=== PATIENT | male | born 1985 | race Caucasian/White ===

== ENCOUNTER 2016-05-02 07:22 | Emergency (ER) | payer SELFPAY ==
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
== END 2016-05-02 08:30 | disposition home or self-care (01) ==
LOC: ER 07:22
DX: S30.0XXA Contusion of lower back and pelvis, initial encounter (principal); V47.5XXA Car driver injured in collision with fixed or stationary object in traffic accident, initial encounter; Y92.413 State road as the place of occurrence of the external cause
CPT/HCPCS: 72100; 99283

== ENCOUNTER 2017-03-08 17:54 | Emergency (ER) | payer MEDICAID ==
--- NOTE | 2017-03-08 18:34 | Emergency Department Record ---
History of Present Illness - General Chief Complaint: Knee injury Stated Complaint: LT KNEE PAIN Time Seen by Provider: 03/08/17 18:31 Source: Patient Mode of Arrival: Ambulatory Limitations: No limitations - History of Present Illness Initial Comments: 31 yo male presents to ED for evaluation of acute on chronic left knee pain. Patient reports a 5-year history of left knee pain symptoms, has undergone radiographs and MRI without definitive cause for his symptoms. Patient reports that his PCP feels that the symptoms are due to arthritis, has been taking Ibuprofen which helps somewhat. Patient denies recent injury, swelling, fevers , redness, or previous surgery to the knee. MD Complaint: Knee injury Onset/Timin -: Year(s) Injury: Knee: Left Type of Injury: Unknown Severity: Moderate Severity scale (1-10): 7 Improves With: NSAID Worsens With: Movement, Weight bearing - Related Data Previous Rx's Medication Instructions Recorded Ibuprofen [Motrin] 800 mg PO Q8H PRN #30 tab 05/02/16 Naproxen [Naprosyn] 500 mg PO Q12H #30 tab 03/08/17 Allergies Allergy/AdvReac Type Severity Reaction Status Date / Time No Known Drug Allergies Allergy Verified 03/08/17 18:12 Travel Screening - Travel/Exposure Within Last 30 Days Have you traveled within the last 30 days?: No Review of Systems Constitutional: Denies: Chills, Fever, Malaise, Night sweats Eyes: Denies: Eye discharge, Eye pain ENT: Denies: Congestion, Ear pain, Epistaxis Respiratory: Denies: Cough, Dyspnea Cardiovascular: Denies: Chest pain, Dyspnea on exertion Endocrine: Denies: Fatigue, Heat or cold intolerance Gastrointestinal: Denies: Abdominal pain, Nausea, Vomiting Genitourinary: Denies: Incontinence, Retention Musculoskeletal: Reports: Arthralgia. Denies: Back pain, Gout, Joint swelling Skin: Denies: Bruising, Change in color Neurological: Denies: Abnormal gait, Confusion, Headache Psychiatric: Denies: Anxiety Hematological/Lymphatic: Denies: Anemia, Blood Clots Past Medical History - SOCIAL HISTORY Smoking Status: Current every day smoker Alcohol Use: None Drug Use: None - RESPIRATORY Hx Respiratory Disorders: Yes Hx Asthma: Yes (childhood) - CARDIOVASCULAR Hx Cardio Disorders: No - NEURO Hx Neuro Disorders: No - GI Hx GI Disorders: No - Hx Genitourinary Disorders: No - ENDOCRINE Hx Endocrine Disorders: No - MUSCULOSKELETAL Hx Musculoskeletal Disorders: No - PSYCH Hx Psych Problems: Yes Hx Anxiety: Yes Hx Depression: Yes - HEMATOLOGY/ONCOLOGY Hx Hematology/Oncology Disorders: No Family Medical History Any Significant Family History?: Yes Hx Cancer: Grandparents Hx Seizures: Grandparents Physical Exam - General General Appearance: Alert, Oriented x3, Cooperative, No acute distress Limitations: No limitations - Head Head exam: Atraumatic, Normocephalic, Normal inspection Head exam detail: negative: Abrasion, Contusion, Ayala's sign, General tenderness, Hematoma, Laceration - Eye Eye exam: Normal appearance. negative: Conjunctival injection, Periorbital swelling, Periorbital tenderness, Scleral icterus - ENT Ear exam: negative: Auricular hematoma, Auricular trauma Nasal Exam: negative: Active bleeding, Discharge, Dried blood, Foreign body Mouth exam: negative: Drooling, Laceration, Muffled voice, Tongue elevation - Neck Neck exam: Normal inspection. negative: Meningismus, Tenderness - Respiratory Respiratory exam: Normal lung sounds bilaterally. negative: Respiratory distress, Rhonchi, Stridor, Wheezes - Cardiovascular Cardiovascular Exam: Regular rate, Normal rhythm, Normal heart sounds - GI/Abdominal GI/Abdominal exam: Soft. negative: Rebound, Rigid, Tenderness - Rectal Rectal exam: Deferred - exam: Deferred - Extremities Extremities exam: Normal inspection. negative: Calf tenderness, Pedal edema, Tenderness - Back Back exam: Reports: Normal inspection. Denies: CVA tenderness (R), CVA tenderness (L) - Neurological Neurological exam: Alert, Oriented X3. negative: Motor sensory deficit - Psychiatric Psychiatric exam: Normal affect, Normal mood - Skin Skin exam: Normal color. negative: Abrasion Type of lesion: negative: abrasion Course Vital Signs 03/08/17 18:09 Temperature 98.7 F Pulse Rate 71 Respiratory 20 Rate Blood Pressure 133/85 Pulse Ox 98 - Reevaluation(s) Reevaluation #1: 03/08/17 18:37 Knee examination is essentially normal. All ligaments are stable on testing, no evidence for effusion or septic joint on examination, and the knee is overall normal in appearance. Given the patient has undergone both negative radiographs and MRI examination with definitive etiology for his symptoms, will refer to Dr. Catalan for further evaluation in the [facility]. Disposition Disposition: Discharge Clinical Impression: Chronic knee pain Qualifiers: Laterality: left Qualified Code(s): M25.562 - Pain in left knee Disposition: Home, Self-Care Condition: (2) Stable Instructions: Knee Pain (ED) Additional Instructions: Return to ED if your symptoms worsen or if you have any concerns. Naprosyn as directed. Follow-up with Dr. Catalan in 5-7 days as directed for further evaluation. Prescriptions: Naproxen [Naprosyn] 500 mg PO Q12H #30 tab.dr Referrals: ANGY ACTALAN [DOCTOR OF OSTEOPATH] - [facility] [Provider Group] Forms: Patient Portal Access Time of Disposition: 18:33 Quality - Quality Measures Quality Measures: N/A - Blood Pressure Screening Does Patient Have Any of the Following: No Blood Pressure Classification: Pre-Hypertensive BP Reading Systolic Measurement: 133 Diastolic Measurement: 85 Screening for High Blood Pressure: < Pre-Hypertensive BP, F/U Documented > [ G8950] Pre-Hypertensive Follow-up Interventions: Referral to alternative/primary care provider.
== END 2017-03-08 19:05 | disposition home or self-care (01) ==
LOC: ER 17:54
DX: G89.29 Other chronic pain (principal); M25.562 Pain in left knee
CPT/HCPCS: 99282

== ENCOUNTER 2017-06-06 22:51 | Emergency (ER) | payer MEDICAID ==
[2017-06-06] MEDS ORDERED: 0.9 % SODIUM CHLORIDE 1,000 ML BAG IV ONE (23:19)
[2017-06-06] MEDS ORDERED: METOCLOPRAMIDE HCL 10 MG/2 ML VIAL IVP ONE (23:21)
[2017-06-06 23:37] LABS: BASO % 0.2 % (0-6); EOS % 4.6 % (0-6); GRAN % 45.3 % (47-80); HEMATOCRIT 43.2 % (42.0-52.0); HEMOGLOBIN 14.8 gm/dl (14.0-18.0); LYMPH % 42.2 % (16-45); MEAN CORPUSCULAR HEMOGLOBIN 28.8 pg (27-33); MEAN CORPUSCULAR HGB CONC 34.3 g/dl (32-36); MEAN PLATELET VOLUME 9.2 fl (7.4-10.4); MONO % 7.7 % (0-9); PLATELET COUNT 289 K/uL (130-400); RED BLOOD COUNT 5.14 M/uL (4.40-5.70); RED CELL DISTRIBUTION WIDTH 13.5 % (11.5-14.5); WHITE BLOOD COUNT W/O DIFF 11.7 K/uL (4.2-12.2)
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
[2017-06-06 23:49] LABS: BLOOD UREA NITROGEN 13 mg/dL (6-20); EST GLOMERULAR FILTRATION RATE > 60 mL/min
[2017-06-06 23:51] LABS: GLUCOSE,RANDOM 88 mg/dL (74-109)
[2017-06-07 00:08] LABS: ERYTHROCYTE SEDIMENTATION RATE 1 mm/hr (0-15)
[2017-06-07] MEDS ORDERED: KETOROLAC 30 MG/ML VIAL IVP ONE (00:25)
--- NOTE | 2017-06-08 06:25 | CT SCAN REPORT ---
DATE: 06/07/2017 at 0005. EXAM: CT OF THE HEAD WITHOUT CONTRAST. HISTORY: Worsening frequent headaches. TECHNIQUE: Routine noncontrast CT examination of the head is performed. COMPARISON: None. 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 There is prominence of the occipital and temporal horns of the lateral ventricles. The subarachnoid spaces are normal in size. No suspicious area of abnormally increased or decreased attenuation is noted throughout the brain substance. No abnormal extra-axial fluid collection is seen. Chronic-appearing inflammatory changes are scattered throughout the majority of the paranasal sinuses. The mastoid air cells are clear. The orbits as visualized are unremarkable. There is right-cooper deviation of the nasal septum. IMPRESSION: 1. 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 NO CT EVIDENCE OF ACUTE INTRACRANIAL ABNORMALITY NOR MASS. 2. CHRONIC INFLAMMATORY CHANGES SCATTERED THROUGHOUT THE MAJORITY OF THE PARANASAL SINUSES. JOB NUMBER: [id number] MTDD
== END 2017-06-07 01:03 | disposition home or self-care (01) ==
LOC: ER 22:51
DX: G43.809 Other migraine, not intractable, without status migrainosus (principal); H53.149 Visual discomfort, unspecified; F17.210 Nicotine dependence, cigarettes, uncomplicated
CPT/HCPCS: 99284 ×2; 96374; 96375; 85025; 85651; 80048; 70450; J1885; J2765; J7030

== ENCOUNTER 2017-09-07 23:42 | Emergency (ER) | payer MEDICAID ==
[2017-09-07] MEDS ORDERED: LORAZEPAM 2 MG/ML VIAL IV ONE (23:44)
--- NOTE | 2017-09-07 23:47 | Emergency Department Record ---
History of Present Illness - General Chief Complaint: Altered Mental Status Stated Complaint: UNRESPONSIVE Time Seen by Provider: 09/07/17 23:43 Source: Family Mode of Arrival: Wheelchair Limitations: Altered mental status - History of Present Illness Initial Comments: 32 yo male presents to ED for evaluation of unresponsiveness for the past 20-30 minutes. Per patient's SO, patient was under emotional stress following a disagreement with a friend at the bedside when he became unresponsive. SO reports a similar episode several years ago, was initially thought to be the result of a seizure, bit was later determined to be an anxiety reaction. SO denies health problems at his baseline. MD Complaint: Altered mental status Onset/Timin -: Minutes(s) Severity: Moderate Consistency: Constant Associated Symptoms: Denies other symptoms - Related Data Home Medications Medication Instructions Recorded Confirmed Last Taken Amitriptyline HCl [Elavil] 25 mg PO DAILY 09/07/17 09/07/17 Unknown Allergies Allergy/AdvReac Type Severity Reaction Status Date / Time No Known Drug Allergies Allergy Verified 03/08/17 18:12 Review of Systems ROS unobtainable: Due to mental status Past Medical History - SOCIAL HISTORY Smoking Status: Current every day smoker - RESPIRATORY Hx Respiratory Disorders: Yes Hx Asthma: Yes (childhood) - CARDIOVASCULAR Hx Cardio Disorders: No - NEURO Hx Neuro Disorders: No Comment:: VERTIGO, hydrocephally, trouble with comprehension. - GI Hx GI Disorders: No - Hx Genitourinary Disorders: No - ENDOCRINE Hx Endocrine Disorders: No - MUSCULOSKELETAL Hx Musculoskeletal Disorders: No - PSYCH Hx Psych Problems: Yes Hx Anxiety: Yes Hx Depression: Yes - HEMATOLOGY/ONCOLOGY Hx Hematology/Oncology Disorders: No Comment:: BORN WITH HYDROCEPHALUS Family Medical History Hx Cancer: Grandparents Hx Seizures: Grandparents Physical Exam - General General Appearance: Other (Patient unresponsive to voice, flaccid paralysis of all limbs, no rigidity noted. Pupils PERRL.) Limitations: Altered mental status - Head Head exam: Atraumatic, Normocephalic, Normal inspection Head exam detail: Other (Diaphoretic). negative: Abrasion, Contusion, Ayala's sign, General tenderness, Hematoma, Laceration - Eye Eye exam: Normal appearance, PERRL. negative: Conjunctival injection, Periorbital swelling, Periorbital tenderness, Scleral icterus - ENT Ear exam: negative: Auricular hematoma, Auricular trauma Nasal Exam: negative: Active bleeding, Discharge, Dried blood, Foreign body Mouth exam: negative: Drooling, Laceration, Muffled voice, Tongue elevation - Neck Neck exam: Normal inspection. negative: Meningismus, Tenderness - Respiratory Respiratory exam: Normal lung sounds bilaterally. negative: Rales, Respiratory distress, Rhonchi, Stridor - Cardiovascular Cardiovascular Exam: Regular rate, Normal rhythm, Normal heart sounds - GI/Abdominal GI/Abdominal exam: Soft. negative: Rebound, Rigid, Tenderness - Rectal Rectal exam: Deferred - exam: Deferred - Extremities Extremities exam: Normal inspection. negative: Pedal edema, Tenderness - Neurological Neurological exam: Other (Cannot assess due to mental status) - Psychiatric Psychiatric exam: Other (Cannot assess due to mental status.) - Skin Skin exam: Diaphoretic. negative: Abrasion Type of lesion: negative: abrasion Course - Reevaluation(s) Reevaluation #1: 09/08/17 00:00 IV was placed, patient is now awake, alert, and answering questions appropriately. Will observe closely pending laboratory studies. Reevaluation #2: 09/08/17 00:27 EKG: NSR 80 Normal axis, normal intervals No acute ST-T wave changes Laboratory studies were reviewed: WBC 13.8 LA 1.5 CPK 73 Labs are otherwise grossly unremarkable for an acute process. Patient's labs, history, and clinical examination (flaccid vs. rigidity) do not suggest seizure, more consistent with emotional stress response. Patient is now sitting up, alert, oriented, and drinking fluids. Patient reports that he is feeling much better and appears stable for discharge at this time. Medical Decision Making - Lab Data Result diagrams: 09/07/17 23:50 09/07/17 23:50 Disposition Disposition: Discharge Clinical Impression: Stress response Disposition: Home, Self-Care Condition: (2) Stable Instructions: Stress (ED) Additional Instructions: Return to ED if your symptoms worsen or if you have any concerns. Follow-up with your family doctor in 3-5 days as directed. Forms: Patient Portal Access Time of Disposition: 00:30 Quality - Quality Measures Quality Measures: N/A - Blood Pressure Screening Does Patient Have Any of the Following: No Blood Pressure Classification: Hypertensive Reading Systolic Measurement: 148 Diastolic Measurement: 103 Screening for High Blood Pressure: < First Hypertensive BP, F/U Documented > [ G8950] First Hypertensive Follow-up Interventions: Referral to alternative/primary care provider.
[2017-09-07 23:58] LABS: BASO % 0.2 % (0-6); EOS % 3.6 % (0-6); HEMATOCRIT 45.2 % (42.0-52.0); HEMOGLOBIN 15.5 gm/dl (14.0-18.0); LYMPH % 33.6 % (16-45); MEAN CELL VOLUME 84.6 fl (81-97); MEAN CORPUSCULAR HGB CONC 34.3 g/dl (32-36); MEAN PLATELET VOLUME 9.4 fl (7.4-10.4); MONO % 8.6 % (0-9); PLATELET COUNT 307 K/uL (130-400); RED BLOOD COUNT 5.34 M/uL (4.40-5.70); RED CELL DISTRIBUTION WIDTH 13.3 % (11.5-14.5); WHITE BLOOD COUNT W/O DIFF 13.8 K/uL (4.2-12.2)
[2017-09-08 00:10] LABS: BLOOD UREA NITROGEN 12 mg/dL (6-20); EST GLOMERULAR FILTRATION RATE > 60 mL/min; TOTAL PROTEIN 7.4 g/dL (6.6-8.7)
[2017-09-08 00:12] LABS: GLUCOSE,RANDOM 99 mg/dL (74-109)
[2017-09-08 00:15] LABS: ALB/GLOB RATIO 1.6 (1.1-1.8); ALBUMIN 4.6 g/dL (4.0-5.0); ALKALINE PHOSPHATASE 106 U/L (40-129); ALT/SGPT 16 U/L (<41); AST/SGOT 20 U/L (10.0-50.0); CREATINE PHOSPHOKINASE 73 U/L (39-308)
== END 2017-09-08 00:50 | disposition home or self-care (01) ==
LOC: ER 23:42
DX: F43.0 Acute stress reaction (principal); R41.82 Altered mental status, unspecified; F17.210 Nicotine dependence, cigarettes, uncomplicated; G91.9 Hydrocephalus, unspecified
CPT/HCPCS: 36416; 80053; 82550; 82948; 83605; 85025; 93005; 93010; 99284

== ENCOUNTER 2017-10-02 20:19 | Emergency (ER) | payer MEDICAID ==
--- NOTE | 2017-10-02 21:16 | Emergency Department Record ---
History of Present Illness - General Chief Complaint: Cough Stated Complaint: COUGH [id number],SORE RIBS Time Seen by Provider: 10/02/17 21:09 Source: Patient Mode of Arrival: Ambulatory Limitations: No limitations - History of Present Illness Initial Comments: 32 yo male presents to ED for evaluation of persistent, intermittent cough symptoms that began 3 weeks ago. Patient reports that he was seen and treated for sinusitis 3 weeks ago that improved his symptoms temporarily, but his cough symptoms have returned. Patient denies fevers, chills, or sore throat symptoms , but does reports rib pain from coughing. MD Complaint: Cough Onset/Timin -: Week(s) Severity: Moderate Quality: Aching Consistency: Constant Improves With: Nothing Worsens With: Nothing Associated Symptoms: Denies other symptoms Treatments Prior to Arrival: Antibiotics, Ibuprofen - Related Data Previous Rx's Medication Instructions Recorded Azithromycin [Zithromax] 250 mg PO DAILY #6 tablet 10/02/17 Benzonatate [Tessalon] 2 cap PO Q8H PRN #30 cap 10/02/17 Ibuprofen [Motrin] 800 mg PO Q6H PRN #30 tab 10/02/17 Prednisone [Prednisone 20Mg] 20 mg PO BID #15 tab 10/02/17 Allergies Allergy/AdvReac Type Severity Reaction Status Date / Time No Known Drug Allergies Allergy Verified 03/08/17 18:12 Travel Screening - Travel/Exposure Within Last 30 Days Have you traveled within the last 30 days?: No - Travel/Exposure Within Last Year Have you traveled outside the [place] in the last year?: No - Additonal Travel Details Have you been exposed to anyone with a communicable illness?: No - Travel Symptoms Symptom Screening: None Review of Systems Constitutional: Denies: Chills, Fever, Malaise, Night sweats Eyes: Denies: Eye discharge, Eye pain ENT: Denies: Congestion, Ear pain, Epistaxis Respiratory: Reports: Cough. Denies: Dyspnea, Hemoptysis Cardiovascular: Denies: Chest pain, Dyspnea on exertion Endocrine: Denies: Fatigue, Heat or cold intolerance Gastrointestinal: Denies: Abdominal pain, Nausea, Vomiting Genitourinary: Denies: Incontinence, Retention Musculoskeletal: Reports: Arthralgia (Rib pain). Denies: Back pain, Gout, Joint swelling Skin: Denies: Bruising, Change in color, Change in hair/nails Neurological: Denies: Abnormal gait, Confusion, Headache, Seizure Psychiatric: Denies: Anxiety Hematological/Lymphatic: Denies: Anemia, Blood Clots Past Medical History - SOCIAL HISTORY Smoking Status: Current every day smoker Alcohol Use: None Drug Use: None - RESPIRATORY Hx Respiratory Disorders: Yes Hx Asthma: Yes (childhood) - CARDIOVASCULAR Hx Cardio Disorders: No - NEURO Hx Neuro Disorders: No Comment:: VERTIGO, hydrocephally, trouble with comprehension. - GI Hx GI Disorders: No - Hx Genitourinary Disorders: No - ENDOCRINE Hx Endocrine Disorders: No - MUSCULOSKELETAL Hx Musculoskeletal Disorders: No - PSYCH Hx Psych Problems: Yes Hx Anxiety: Yes Hx Depression: Yes - HEMATOLOGY/ONCOLOGY Hx Hematology/Oncology Disorders: No Comment:: BORN WITH HYDROCEPHALUS Family Medical History Any Significant Family History?: No Hx Cancer: Grandparents Hx Seizures: Grandparents Physical Exam - General General Appearance: Alert, Oriented x3, Cooperative, Mild distress Limitations: No limitations - Head Head exam: Atraumatic, Normocephalic, Normal inspection Head exam detail: negative: Abrasion, Contusion, Ayala's sign, General tenderness, Hematoma, Laceration - Eye Eye exam: Normal appearance. negative: Conjunctival injection, Periorbital swelling, Periorbital tenderness, Scleral icterus - ENT Ear exam: negative: Auricular hematoma, Auricular trauma Nasal Exam: negative: Active bleeding, Discharge, Dried blood, Foreign body Mouth exam: negative: Drooling, Laceration, Muffled voice, Tongue elevation - Neck Neck exam: Normal inspection. negative: Meningismus, Tenderness - Respiratory Respiratory exam: Normal lung sounds bilaterally. negative: Rales, Respiratory distress, Rhonchi, Stridor - Cardiovascular Cardiovascular Exam: Regular rate, Normal rhythm, Normal heart sounds - GI/Abdominal GI/Abdominal exam: Soft. negative: Rebound, Rigid, Tenderness - Rectal Rectal exam: Deferred - exam: Deferred - Extremities Extremities exam: Normal inspection. negative: Calf tenderness, Pedal edema, Tenderness - Back Back exam: Denies: CVA tenderness (R), CVA tenderness (L) - Neurological Neurological exam: Alert, Normal gait, Oriented X3 - Psychiatric Psychiatric exam: Normal affect, Normal mood - Skin Skin exam: Normal color. negative: Abrasion Type of lesion: negative: abrasion Course Vital Signs 10/02/17 20:57 Temperature 98.7 F Pulse Rate 83 Respiratory 20 Rate Blood Pressure 163/100 Pulse Ox 98 - Reevaluation(s) Reevaluation #1: 10/02/17 21:21 Patient was seen and examined, symptoms appear c/w bronchitis. Will treat with Prednisone, tessalon, and Motrin 800 mg as directed. Will also prescribe Zithromax if symptoms fail to improve in 48-72 hours, however CAP appears much less likely. Disposition Disposition: Discharge Clinical Impression: Bronchitis Disposition: Home, Self-Care Condition: (2) Stable Instructions: Acute Bronchitis (ED) Additional Instructions: Return to ED if your symptoms worsen or if you have any concerns. Zithromax, Prednisone, Tessalon Perles, and Motrin 800 mg as directed. Follow-up with your family doctor in 3-5 days as directed. Prescriptions: Azithromycin [Zithromax] 250 mg PO DAILY #6 tablet Benzonatate [Tessalon] 2 cap PO Q8H PRN #30 cap PRN Reason: Cough Ibuprofen [Motrin] 800 mg PO Q6H PRN #30 tab PRN Reason: Pain - Mild To Moderate (1-7) Prednisone [Prednisone 20Mg] 20 mg PO BID #15 tab Forms: Patient Portal Access Time of Disposition: 21:15 Quality - Quality Measures Quality Measures: N/A - Blood Pressure Screening Does Patient Have Any of the Following: No Blood Pressure Classification: Hypertensive Reading Systolic Measurement: 163 Diastolic Measurement: 100 Screening for High Blood Pressure: < First Hypertensive BP, F/U Documented > [ G8950] First Hypertensive Follow-up Interventions: Referral to alternative/primary care provider.
[2017-10-02] MEDS ORDERED: PREDNISONE 20 MG TAB PO ONE (21:22)
== END 2017-10-02 21:30 | disposition home or self-care (01) ==
LOC: ER 20:19
DX: J20.9 Acute bronchitis, unspecified (principal); F17.210 Nicotine dependence, cigarettes, uncomplicated
CPT/HCPCS: 99282; J7512